=== PATIENT | female | born 1935 | race Caucasian/White ===

== ENCOUNTER 2018-03-22 23:50 | Inpatient (IN) ==
[2018-03-23] MEDS ORDERED: Naloxone 0.4 MG/ML INJ IVP PRN (05:28)
[2018-03-23] MEDS ORDERED: D5% in Water 1,000 ML IVC PRN (05:31)
[2018-03-23] MEDS ORDERED: *HR* Dextrose 50 % in Water (Syg) 50 ML SYRINGE IVP PRN (05:31)
[2018-03-23] MEDS ORDERED: Dextrose Gel 15 GM/37.5 ML TUBE PO PRN ×2 (05:31)
--- NOTE | 2018-03-23 05:33 | Internal Med History&Physical ---
<Alden Carrasquillo R - Last Filed: 03/23/18 06:31> Date of Encounter: 03/23/18 Time of Encounter: 05:33 Internal Medicine - H&P: HPI Chief complaint: Shortness of breath Admitted From: Emergency Dept Plans for Post Hospital Care: Home History of present illness: Ms. Boyce is a 82 year old female with history of COPD oxygen dependent 2 L nasal cannula, CHF, recent hospitalization for pneumonia and COPD exacerbation. She reports shortness of breath beginning yesterday afternoon. This was worse with activity. Complains of associated cough, chest congestion, and wheezing. She denies chest pain, nausea, vomiting, abdominal pain, fever or chills. Evaluation in the emergency department did reveal mild leukocytosis of 13.3, afebrile, heart rate of 111, respiratory rate of 28. Did initially require B iPAP in the ED however this was subsequently removed and patient tolerated oxygen by nasal cannula. CT of the chest was negative for pulmonary embolus, no findings suggestive of consolidation or pneumonia. Patient was given breathing treatments and levofloxacin. She was transferred to [facility] from [place] ED for further evaluation and management. At the time my evaluation patient is resting comfortably in bed. She reports that shortness of breath is present but is improved since initial presentation. She has no complaints at this time. Past Med Surg Social Fam HX - Past Medical History Medical history: asthma, cancer, cardiomyopathy, CHF, COPD, GERD, other Additional medical history: breast cancer, skin cancer lesion of the L lesion of the L [place], Psychiatric history: no psych history - Past Surgical History Surgical History: breast surgery, cholecystectomy, MORELIA/BSO Additional surgical history: double mastectomy with lymph node removal on the right, carpal tunnel on both wrists, - Social History Smoking Status: Former smoker Smokeless Tobacco Status: No Alcohol use: none Drug use: none - Family History Father Living Status: Hx Family Cancer: Yes (Prostate) Mother Living Status: Hx Family Cancer: (colon cancer) Hx Family Neurologic Disorders: Yes (CVA) Sister Hx Family Cancer: Yes (Skin, breast) Brother Hx Family Cardiac Disorders: Yes (bradycardia) Internal Medicine - H&P: Meds ALPRAZolam [Xanax 0.25 MG Tablet] 0.25 mg PO BID 09/14/15 [History] Albuterol Sulfate [Albuterol Inhaler] 1 puff IH Q6HR PRN 09/14/15 [History] Ascorbate Calcium [Vitamin C] 500 mg PO DAILY 09/14/15 [History] Aspirin Enteric Coated [Aspirin EC] 81 mg PO DAILY 09/14/15 [History] Citalopram Hydrobromide [Citalopram HBr] 20 mg PO DAILY 09/14/15 [History] Ergocalciferol (VITAMIN D2) [Vitamin D2 (50,000 UNIT)] 50,000 unit PO DAILY 09/14/15 [History] Ferrous Sulfate 325 mg PO DAILY 09/14/15 [History] Fluticasone/Salmeterol [Advair 250-50 Diskus] 1 each IH BID 09/14/15 [History] Furosemide [Lasix] 20 mg PO DAILY 09/14/15 [History] Metoprolol Tartrate [Lopressor] 50 mg PO BID 09/14/15 [History] Montelukast [Singulair] 10 mg PO DAILY 09/14/15 [History] Esomeprazole Magnesium [Nexium] 20 mg PO DAILY 09/12/16 [History] Oxygen 1 each .ROUTE AD 09/12/16 [History] Anastrozole [Arimidex] 1 mg PO DAILY #30 tablet 09/21/17 [Rx] DULoxetine 30 mg DAILY 03/03/18 [History] Hydrochlorothiazide 25 mg PO DAILY 03/03/18 [History] Ipratropium/Albuterol Neb [Duoneb] 3 ml IH QID 03/03/18 [History] Potassium Chloride [Klor-Con Sprinkle] 20 meq PO BID 03/03/18 [History] Docusate [Colace] 100 mg PO BID capsule 03/05/18 [Rx] Allergy/AdvReac Type Severity Reaction Status Date / Time latex Allergy Hives Verified 03/23/18 04:30 Penicillins [PCN] Allergy Rash Verified 09/12/16 11:22 Sulfa (Sulfonamide Allergy Rash Verified 09/12/16 11:22 Antibiotics) All Systems PM: A 10-system review of systems was performed and is negative for pertinent fin dings except as documented above in the HPI. - Constitutional Constitutional: no chills, no fever(s) - EENT Eyes: no change in vision, no diplopia Nose, mouth and throat: no dysphagia, no neck pain - Cardiovascular Cardiovascular ROS IM: no chest pain, no diaphoresis, no lightheadedness, no palpitations - Respiratory Respiratory: cough, dyspnea, dyspnea on exertion, wheezing, chest congestion - Gastrointestinal Gastrointestinal: constipation, no abdominal pain, no diarrhea, no hematemesis, no hematochezia, no melena, no nausea, no vomiting - Genitourinary Genitourinary: no dysuria, no flank pain - Musculoskeletal Musculoskeletal ROS IM: no muscle weakness, no numbness, no tingling - Integumentary Integumentary IM: no erythema, no rash - Neurological Neurological ROS: no confusion, no dizziness, no focal weakness - Psychiatric Psychiatric: no anxiety, no depression - Hematologic/Lymphatic Hematologic/Lymphatic: no easy bleeding, no easy bruising - Constitutional Vitals: Temp Pulse Resp BP Pulse Ox 98.1 F 105 16 108/65 97 03/23/18 03:56 03/23/18 03:56 03/23/18 03:56 03/23/18 03:56 03/23/18 03:56 Exam: General: Patient seated upright in bed, appears stated age, no apparent distress HEENT: Atraumatic, normocephalic, anicteric sclera, moist mucous membranes, pupils PERRLA with EOMI Neck: Soft, full range of motion, no lymphadenopathy Cardiovascular: Tachycardic with regular rate and rhythm, no murmurs, rubs, or gallops Respiratory: Diffuse expiratory wheezing, prolonged respiratory phase, no crackles present to auscultation Abdomen: Soft, nontender, nondistended, positive bowel sounds, no guarding or rigidity Extremities: 1+ pitting edema bilateral lower extremities, peripheral pulses intact Neuro: Alert and oriented to person, place, and situation. No focal deficits. Psych: Conversant and pleasant, appropriate mood and affect - Assessment and plan (1) Acute exacerbation of chronic obstructive airways disease Current Visit: No Status: Acute Assessment and plan: Oxygen dependent COPD with acute exacerbation CTA chest without evidence of pulmonary embolus, bilateral lower lobe mucous plugs present Plan: Supplemental oxygenation as necessary Antibiotics with Levaquin Solu-Medrol 40 mg every 6 hours Will consider BiPAP as indicated (2) HTN (hypertension) Current Visit: No Status: Chronic Assessment and plan: Controlled at this time, will resume all medications after pharmacy verification Qualifiers: Hypertension type: essential hypertension Qualified Code(s): I10 - Essential (primary) hypertension (3) CHF (congestive heart failure) Current Visit: No Status: Chronic Assessment and plan: Does not appear to be volume overloaded at this time Will resume home medications pending pharmacy verification Qualifiers: Heart failure type: unspecified Heart failure chronicity: chronic Quali fied Code(s): I50.9 - Heart failure, unspecified (4) Hypokalemia Current Visit: No Status: Acute Assessment and plan: Hyperkalemic at admission with potassium of 3.4 We will monitor and replace electrolytes as necessary We will check magnesium level (5) DVT prophylaxis Current Visit: Yes Status: Acute Assessment and plan: Heparin SQ 5000 units every 8 hours - Time Spent With Patient Total time spent is greater than 50% in coordination of care (as documented) at patient's floor/unit and/or counseling patient: <Maria Fernanda Pereira - Last Filed: 03/23/18 07:26> Date of Encounter: 03/23/18 Internal Medicine - H&P: HPI History of present illness: Ms. Boyce is a 82 year old female All Systems PM: A 10-system review of systems was performed and is negative for pertinent findings except as documented above in the HPI. - Constitutional Vitals: Temp Pulse Resp BP Pulse Ox 98.1 F 105 18 108/65 98 03/23/18 03:56 03/23/18 03:56 03/23/18 06:05 03/23/18 03:56 03/23/18 06:05 - Assessment and plan (1) Acute exacerbation of chronic obstructive airways disease Current Visit: No Status: Acute (2) HTN (hypertension) Current Visit: No Status: Chronic Qualifiers: Hypertension type: essential hypertension Qualified Code(s): I10 - Essential (primary) hypertension (3) CHF (congestive heart failure) Current Visit: No Status: Chronic Qualifiers: Heart failure type: unspecified Heart failure chronicity: chronic Qualified Code(s): I50.9 - Heart failure, unspecified (4) Hypokalemia Current Visit: No Status: Acute (5) DVT prophylaxis Current Visit: Yes Status: Acute - Time Spent With Patient Total time spent is greater than 50% in coordination of care (as documented) at patient's floor/unit and/or counseling patient: - Attending Attestation I performed a history and physical examination of the patient and discussed her management with the resident. I have reviewed the resident's note and agree with the assessment and plan of care. Patient is a 82-year-old female with a past medical history of COPD currently on 2 L home oxygen who presents to [facility] initially complaining of shortness of breath. A CTA was performed which showed negative PE. No evidence of pneumonia on imaging. Patient was to be admitted at [place] for COPD exacerbation but they do not have any female beds and therefore patient was subsequently transferred to [place].
[2018-03-23] MEDS ORDERED: Ipratropium/Albuterol Neb 3 ML ONE (05:57)
[2018-03-23] MEDS: Ipratropium/Albuterol Neb 3 ML IH SCH ×4 (06:04→22:34)
[2018-03-23] MEDS: *HR* Heparin 5,000 UNIT/ML VIAL SQ SCH ×3 (06:09→21:53)
[2018-03-23] MEDS ORDERED: methylPREDNISolone 125 MG/2 ML VIAL IVP SCH (08:00)
[2018-03-23] MEDS: Insulin LISPRO 300 UNITS/3 ML VIAL SQ SCH ×4 (08:31→21:21)
[2018-03-23] MEDS: Levofloxacin 750 MG/150 ML 750 MG/150 ML BAG IVPB SCH (08:39)
[2018-03-23 09:34] LABS: Hematocrit 37.7 % (35.3-44.9); Mean Corpuscular HGB Conc 34.5 g/dL (31.6-35.5); Mean Corpuscular Hemoglobin 30.7 pg (28.0-33.3); Mean Corpuscular Volume 88.9 fL (83.0-100.0); Mean Platelet Volume 10.4 fL (9.4-12.4); Platelet Count 210 K/mcL (140-400); Red Blood Count 4.24 M/mcL (3.82-4.97); Red Cell Distribution Width 13.2 % (11.5-14.5)
[2018-03-23 09:53] LABS: BUN/Creatinine Ratio 23 (6-26); Blood Urea Nitrogen 16 mg/dL (8-23); Carbon Dioxide 28 mEq/L (23-29); Chloride 90 mEq/L (98-107); Glucose 197 mg/dL (70-105); Osmolality,Calculated 277 (280-300); Potassium 3.8 mEq/L (3.5-5.1); Sodium 130 mEq/L (136-145); eGFR For Non-African Americans > 60 (> 60)
[2018-03-23 09:54] LABS: Calcium 9.6 mg/dL (8.6-10.3)
--- NOTE | 2018-03-23 10:02 | Internal Med Progress Note ---
<Rell Carolina - Last Filed: 03/23/18 09:59> Date of Encounter: 03/23/18 Time of Encounter: 09:10 - Assessment and plan (1) Acute exacerbation of chronic obstructive pulmonary disease (COPD) Current Visit: No Status: Acute Assessment and plan: On examination today patient still has a moderate amount of wheezing bilaterally on auscultation. However she is at her baseline oxygen rate of 2 L. Oxygen saturation of 97 currently. Patient is afebrile. COPD exacerbation likely triggered by patient's recent infection with pneumonia couple weeks ago. CTA chest without evidence of pulmonary embolus, bilateral lower lobe mucous plugs present - Increase Solu-Medrol from 40 mg 4 times a day to 60 mg 3 times a day. - Continue Levaquin day #1. - BiPAP as needed. - Supplemental oxygen as necessary. (2) HTN (hypertension) Current Visit: No Status: Chronic Assessment and plan: Blood pressure stable at 108/65. - Blood pressure control at this time. Will resume home medications once verified by pharmacy. Qualifiers: Hypertension type: essential hypertension Qualified Code(s): I10 - Essential (primary) hypertension (3) CHF (congestive heart failure) Current Visit: No Status: Chronic Assessment and plan: Does not appear to be volume overloaded at this time - Will resume home medications pending pharmacy verification Qualifiers: Heart failure type: unspecified Heart failure chronicity: chronic Qualified Code(s): I50.9 - Heart failure, unspecified (4) Hypokalemia Current Visit: No Status: Resolved Assessment and plan: Potassium 3.8. Magnesium level is normal. (5) DVT prophylaxis Current Visit: Yes Status: Acute Assessment and plan: Heparin SQ 5000 units every 8 hours - Subjective Interval history: When seen today patient denies any nausea, or vomiting. She says her shortness of breath has improved a little since yesterday. She denies any lightheadedness, dizziness. Denies any abdominal pain. She still admits to some cough with production of yellow sputum. She denies any fever. - Constitutional Vitals: Temp Pulse Resp BP Pulse Ox 97.9 F 106 13 108/65 97 03/23/18 07:43 03/23/18 07:43 03/23/18 07:43 03/23/18 03:56 03/23/18 07:43 General appearance: Present: A&O X 3, no acute distress, answers questions appropriately - Respiratory Respiratory exam: Present: wheezes (Moderate wheezing bilaterally). Absent: accessory muscle use, chest wall tenderness, decreased breath sounds, rhonchi, stridor, tachypnea - Cardiovascular Cardiovascular exam: Present: +S1, +S2, tachycardia (Borderline tachycardia). Absent: +S3, +S4 - GI/Abdominal GI/Abdominal exam: Present: normal bowel sounds, soft, no peritoneal signs. Absent: distended, tenderness - Extremities Exam Extremities exam: Present: warm, radial pulses palpable and symmetrical. Absent: calf tenderness, cyanotic, pedal edema Internal Medicine: Result - Labs CBC & Chem 7: 03/23/18 09:21 03/23/18 09:21 Labs: Short CBC 03/23/18 Range/Units 09:21 WBC 10.9 (4.3-11.1) K/mcL Hgb 13.0 (11.5-15.4) g/dL Hct 37.7 (35.3-44.9) % Plt Count 210 (140-400) K/mcL BMP 03/23/18 09:21 Sodium 130 L Potassium 3.8 Chloride 90 L Carbon Dioxide 28 BUN 16 Creatinine 0.69 Glucose 197 H Calcium 9.6 Consult Discharge Plan - Plan Referrals: Kevyn Zhu MD [Partnered Physician] - 03/29/18 8:00 am Daisy Herrera [Advanced Practice Nurse] - 05/19/18 9:30 am Kurt Avalos, [employer] [Primary Care Provider] - Xu Meeks MD [Partnered Physician] - 04/14/18 1:30 pm <Catherine Allison - Last Filed: 03/23/18 13:23> Date of Encounter: 03/23/18 - Constitutional Vitals: Temp Pulse Resp BP Pulse Ox 98.1 F 124 14 125/62 95 03/23/18 12:23 03/23/18 12:23 03/23/18 12:23 03/23/18 12:23 03/23/18 12:23 Internal Medicine: Result - Labs CBC & Chem 7: 03/23/18 09:21 03/23/18 09:21 Labs: Short CBC 03/23/18 Range/Units 09:21 WBC 10.9 (4.3-11.1) K/mcL Hgb 13.0 (11.5-15.4) g/dL Hct 37.7 (35.3-44.9) % Plt Count 210 (140-400) K/mcL [facility] 03/23/18 09:21 Sodium 130 L Potassium 3.8 Chloride 90 L Carbon Dioxide 28 BUN 16 Creatinine 0.69 Glucose 197 H Calcium 9.6 - Attending Attestation I examined this patient and my medical decision-making was reviewed with the Resident Physician Dr. Carolina . I agree with the documented findings, disposition and treatment plan as described except to the extent set forth below. Ms. Boyce is a 82 year old female with history of COPD oxygen dependent 2 L nasal cannula, Diastolic CHF, recent hospitalization for pneumonia and COPD exacerbation. She reports shortness of breath beginning yesterday afternoon. She still complains of associated cough, chest congestion, and wheezing. CT of the chest was negative for pulmonary embolus, no findings suggestive of consolidation or pneumonia. She is currently on 2 lit O2. Still having moderate SOB and IGLESIAS. Gen: A, A, O x 3 Chest: Diminished BS b/l, moderate to severe wheezing. Ronchi+ No rales Heart: S1S2+ Sinus tachy, No murmurs Ext: No edema a/p 1. Acute COPD exacerbation 2. Acute purulent bronchitis 3. Acute on chronic hypoxic resp failure 4. Sinus tachycardia 5. SIRS cont empirical abx Levaquin Will inc her steroids to 60mg Q6hr Will start her on Mucinex 6. Chronic CHF - mostly diastolic No previous Echo's to assess will order Echo today Held diuretics since her BP running low cont BB Patient does need to stay in the hospital more than 2 midnights due to her c omplex medical problems. So we will change her to full admission today. I did review my colleague Dr. Pereira H & P including HPI, PMH, PSH, FH, SH, and ROS no changes noticed
[2018-03-23] MEDS: Ondansetron 4 MG/2 ML VIAL IVP SCH ×2 (10:43→17:22)
[2018-03-23] MEDS ORDERED: MethylPREDNISolone 40 MG/ML VIAL IVP SCH (12:00)
[2018-03-23] MEDS ORDERED: Anastrozole 1 MG TABLET PO SCH (12:21)
[2018-03-23] MEDS ORDERED: Aspirin Enteric Coated 81 MG Tablet PO SCH (12:30)
[2018-03-23] MEDS: MethylPREDNISolone 40 MG/ML VIAL IVP SCH (17:22)
[2018-03-23] MEDS ORDERED: ALPRAZolam 0.25 MG TABLET PO SCH (21:00)
[2018-03-23] MEDS: ALPRAZolam 0.25 MG TABLET PO SCH (21:53)
[2018-03-24] MEDS: Ondansetron 4 MG/2 ML VIAL IVP SCH ×5 (00:07→23:15)
[2018-03-24] MEDS: MethylPREDNISolone 40 MG/ML VIAL IVP SCH ×3 (00:14→16:27)
[2018-03-24] MEDS: Ipratropium/Albuterol Neb 3 ML IH SCH ×4 (04:29→22:05)
[2018-03-24] MEDS: *HR* Heparin 5,000 UNIT/ML VIAL SQ SCH ×3 (05:25→20:27)
[2018-03-24 07:13] LABS: Hematocrit 37.3 % (35.3-44.9); Hemoglobin 12.5 g/dL (11.5-15.4); Immature Granulocytes % 0.6 % (0-4); Lymphocytes # 0.6 K/mcL (0.6-4.6); Lymphocytes % 6.4 %; Mean Corpuscular HGB Conc 33.5 g/dL (31.6-35.5); Mean Corpuscular Hemoglobin 30.3 pg (28.0-33.3); Mean Corpuscular Volume 90.5 fL (83.0-100.0); Mean Platelet Volume 10.4 fL (9.4-12.4); Monocytes # 0.1 K/mcL (0.0-1.3); Monocytes % 1.4 %; Neutrophils # 8.9 K/mcL (1.6-8.9); Platelet Count 213 K/mcL (140-400); Red Blood Count 4.12 M/mcL (3.82-4.97); Red Cell Distribution Width 13.4 % (11.5-14.5); Segmented Neutrophils % 91.6 %
[2018-03-24 07:35] LABS: BUN/Creatinine Ratio 25 (6-26); Blood Urea Nitrogen 20 mg/dL (8-23); Calcium 9.9 mg/dL (8.6-10.3); Carbon Dioxide 33 mEq/L (23-29); Chloride 93 mEq/L (98-107); Glucose 217 mg/dL (70-105); Osmolality,Calculated 287 (280-300); Potassium 3.6 mEq/L (3.5-5.1); Sodium 134 mEq/L (136-145); eGFR For Non-African Americans > 60 (> 60)
[2018-03-24] MEDS: Anastrozole 1 MG TABLET PO SCH (08:15)
[2018-03-24] MEDS: Aspirin Enteric Coated 81 MG Tablet PO SCH (08:15)
[2018-03-24] MEDS: ALPRAZolam 0.25 MG TABLET PO SCH ×2 (08:15→20:26)
[2018-03-24] MEDS: Levofloxacin 750 MG/150 ML 750 MG/150 ML BAG IVPB SCH (08:16)
[2018-03-24] MEDS: Cholecalciferol (D-3) 1,000 UNIT TABLET PO SCH (08:16)
[2018-03-24] MEDS: Insulin LISPRO 300 UNITS/3 ML VIAL SQ SCH ×4 (08:16→20:27)
[2018-03-24] MEDS ORDERED: Cholecalciferol (D-3) 1,000 UNIT TABLET PO SCH (09:00)
[2018-03-24] MEDS ORDERED: Aspirin Enteric Coated 81 MG Tablet PO SCH (09:00)
[2018-03-24] MEDS ORDERED: Anastrozole 1 MG TABLET PO SCH (09:00)
[2018-03-24] MEDS ORDERED: NON-FORMULARY MEDICATION 1 EACH EACH (Esomeprazole Magnesium [Nexium] 20 MG) PO SCH (09:00)
--- NOTE | 2018-03-24 11:07 | Internal Med Progress Note ---
Hospitalist Progress Note - Encounter Date of Encounter: 03/24/18 Time of Encounter: 11:04 - Subjective Interval History: Ms. Boyce is a 82 year old female with history of COPD oxygen dependent 2 L nasal cannula, Diastolic CHF, recent hospitalization for pneumonia and COPD exacerbation. She reports shortness of breath beginning yesterday afternoon. She still complains of associated cough, chest congestion, and wheezing. CT of the chest was negative for pulmonary embolus, no findings suggestive of consolidation or pneumonia. She is currently on 2 lit O2. Still having moderate SOB and IGLESIAS. She denied any chest pain. She still complaining about cough with expectoration - Exam Vitals: Temp Pulse Resp BP Pulse Ox 98.5 F 106 16 117/64 94 03/24/18 08:02 03/24/18 08:02 03/24/18 08:02 03/24/18 08:02 03/24/18 08:02 Exam: Gen: Alert, awake, Oriented to time,place and person Chest: Diminished BS b/l, moderate wheezing. Ronchi+ No rales Heart: S1S2+ RRR No murmurs Abd: Soft, NT, BS +, No organomegaly Ext: No edema, pulses are palpable, No calf tenderness Neuro : Benign findings Skin: No rash. - Assessment and Plan (1) Acute exacerbation of chronic obstructive airways disease Current Visit: No Status: Acute Assessment and Plan: Slowly improving her wheezing little better today will cut down on her steroids today continue bronchodilator (2) Acute bronchitis Current Visit: Yes Status: Acute Assessment and Plan: Mostly bacterial continue empirical antibiotic levofloxacin (3) Chronic respiratory failure with hypoxia Current Visit: Yes Status: Acute Assessment and Plan: Currently on 2 lit oxygen (4) CHF (congestive heart failure) Current Visit: No Status: Chronic Assessment and Plan: Does not appear to be volume overloaded at this time most likely seems to be chronic diastolic CHF No previous Echo's to assess Echo - P Held diuretics since her BP running low and patient is high risk for sepsis cont BB (5) HTN (hypertension) Current Visit: No Status: Chronic Assessment and Plan: Stable blood pressure now - Time Spent with Patient Total time spent is greater than 50% in coordination of care (as documented) at patient's floor/unit and/or counseling patient: Internal Medicine: Result - Labs CBC & Chem 7: 03/24/18 06:14 03/24/18 06:14 Labs: Short CBC 03/24/18 Range/Units 06:14 WBC 9.7 (4.3-11.1) K/mcL Hgb 12.5 (11.5-15.4) g/dL Hct 37.3 (35.3-44.9) % Plt Count 213 (140-400) K/mcL Neutrophils # 8.9 (1.6-8.9) K/mcL BMP 03/24/18 06:14 Sodium 134 L Potassium 3.6 Chloride 93 L Carbon Dioxide 33 H BUN 20 Creatinine 0.81 Glucose 217 H Calcium 9.9 Consult Discharge Plan - Plan Referrals: Kevyn Zhu MD [Partnered Physician] - 03/29/18 8:00 am Daisy Herrera [Advanced Practice Nurse] - 05/19/18 9:30 am Kurt Avalos CNP [Primary Care Provider] - 03/29/18 3:40 pm Xu Meeks MD [Partnered Physician] - 04/14/18 1:30 pm (4) CHF (congestive heart failure) Qualifiers: Heart failure type: unspecified Heart failure chronicity: chronic Qualified Code(s): I50.9 - Heart failure, unspecified (5) HTN (hypertension) Qualifiers: Hypertension type: essential hypertension Qualified Code(s): I10 - Essential (primary) hypertension
[2018-03-24] MEDS: Sennosides/Docusate Sodium TABLET PO SCH ×2 (11:45→20:26)
[2018-03-25] MEDS: Ipratropium/Albuterol Neb 3 ML IH SCH ×4 (03:58→22:39)
[2018-03-25] MEDS: *HR* Heparin 5,000 UNIT/ML VIAL SQ SCH ×3 (05:53→21:24)
[2018-03-25] MEDS: Ondansetron 4 MG/2 ML VIAL IVP SCH ×2 (05:54→12:17)
[2018-03-25] MEDS: MethylPREDNISolone 40 MG/ML VIAL IVP SCH ×2 (05:54→16:50)
[2018-03-25] MEDS: Aspirin Enteric Coated 81 MG Tablet PO SCH (07:33)
[2018-03-25] MEDS: Anastrozole 1 MG TABLET PO SCH (07:33)
[2018-03-25] MEDS: Insulin LISPRO 300 UNITS/3 ML VIAL SQ SCH ×4 (07:33→21:30)
[2018-03-25] MEDS: ALPRAZolam 0.25 MG TABLET PO SCH ×2 (07:33→21:23)
[2018-03-25] MEDS: Sennosides/Docusate Sodium TABLET PO SCH ×2 (07:33→21:23)
[2018-03-25] MEDS: Levofloxacin 750 MG/150 ML 750 MG/150 ML BAG IVPB SCH (07:34)
[2018-03-25] MEDS: Cholecalciferol (D-3) 1,000 UNIT TABLET PO SCH (07:34)
--- NOTE | 2018-03-25 12:51 | Internal Med Progress Note ---
<MickyfidelRell morales - Last Filed: 03/25/18 12:47> Date of Encounter: 03/25/18 Time of Encounter: 09:30 - Assessment and plan (1) Acute exacerbation of chronic obstructive pulmonary disease (COPD) Current Visit: No Status: Acute Assessment and plan: On examination today patient still has a moderate amount of wheezing bilaterally on auscultation. However she is at her baseline oxygen rate of 2 L. Oxygen saturation of 92 currently. Patient is afebrile. COPD exacerbation likely triggered by patient's recent bronchitis. CTA chest without evidence of pulmonary embolus, bilateral lower lobe mucous plugs present - Continue Solu-Medrol from 40 mg BID daily. - Continue scheduled duonebs. - Continue Levaquin day #3. Will need total 5 day course. - BiPAP as needed. - Supplemental oxygen as necessary. (2) HTN (hypertension) Current Visit: No Status: Chronic Assessment and plan: Blood pressure stable at 113/60. - Blood pressure controlled at this time. - Continue metoprolol. Qualifiers: Hypertension type: essential hypertension Qualified Code(s): I10 - Es sential (primary) hypertension (3) CHF (congestive heart failure) Current Visit: No Status: Chronic Assessment and plan: Does not appear to be volume overloaded at this time. Qualifiers: Heart failure type: unspecified Heart failure chronicity: chronic Qualified Code(s): I50.9 - Heart failure, unspecified (4) DVT prophylaxis Current Visit: Yes Status: Acute Assessment and plan: Heparin SQ 5000 units every 8 hours - Subjective Interval history: When seen today patient denies any nausea, or vomiting. She says her shortness of breath has improved a since yesterday. She denies any lightheadedness, dizziness. Denies any abdominal pain. She still admits to some cough with p roduction of clear sputum. She denies any fever. Still denies having a bowel movement yet since admission. - Constitutional Vitals: Temp Pulse Resp BP Pulse Ox 98.6 F 96 16 113/69 93 03/25/18 11:28 03/25/18 11:28 03/25/18 11:28 03/25/18 11:28 03/25/18 11:28 General appearance: Present: A&O X 3, no acute distress, answers questions appropriately - Respiratory Respiratory exam: Present: wheezes (Moderate wheezing b/l). Absent: accessory muscle use, respiratory distress, rhonchi, tachypnea - Cardiovascular Cardiovascular exam: Present: RRR, +S1, +S2. Absent: diastolic murmur, gallop, rubs, systolic murmur - GI/Abdominal GI/Abdominal exam: Present: normal bowel sounds, soft, no peritoneal signs. Absent: distended, tenderness - Extremities Exam Extremities exam: Present: normal capillary refill, warm, radial pulses palpable and symmetrical. Absent: calf tenderness, cyanotic, pedal edema Internal Medicine: Result - Labs CBC & Chem 7: 03/24/18 06:14 03/24/18 06:14 Consult Discharge Plan - Plan Referrals: Kevyn Zhu MD [Partnered Physician] - 03/29/18 8:00 am Daisy Herrera [Advanced Practice Nurse] - 05/19/18 9:30 am Kurt Avalos CNP [Primary Care Provider] - 03/29/18 3:40 pm Xu Meeks MD [Partnered Physician] - 04/14/18 1:30 pm <Catherine Allison - Last Filed: 03/25/18 13:58> Date of Encounter: 03/25/18 - Assessment and plan (1) Acute exacerbation of chronic obstructive airways disease Current Visit: No Status: Acute (2) Acute bronchitis Current Visit: Yes Status: Acute (3) Chronic respiratory failure with hypoxia Current Visit: Yes Status: Acute (4) CHF (congestive heart failure) Current Visit: No Status: Chronic Qualifiers: Heart failure type: unspecified Heart failure chronicity: chronic Qualified Code(s): I50.9 - Heart failure, unspecified (5) HTN (hypertension) Current Visit: No Status: Chronic Qualifiers: Hypertension type: essential hypertension Qualified Code(s): I10 - Essential (primary) hypertension - Constitutional Vitals: Temp Pulse Resp BP Pulse Ox 98.6 F 96 16 113/69 93 03/25/18 11:28 03/25/18 11:28 03/25/18 11:28 03/25/18 11:28 03/25/18 11:28 Internal Medicine: Result - Labs CBC & Chem 7: 03/24/18 06:14 03/24/18 06:14 - Attending Attestation I examined this patient and my medical decision-making was reviewed with the Resident Physician Dr. Carolina . I agree with the documented findings, disposition and treatment plan as described except to the extent set forth below. Ms. Boyce is a 82 year old female with history of COPD oxygen dependent 2 L nasal cannula, Diastolic CHF, recent hospitalization for pneumonia and COPD exacerbation. She reports shortness of breath beginning yesterday afternoon. She still complains of associated cough, chest congestion, and wheezing. CT of the chest was negative for pulmonary embolus, no findings suggestive of consolidation or pneumonia. She is currently on 2 lit O2. Still having moderate SOB and IGLESIAS. She denied any chest pain. Overall feels little better today Gen: A, A, O x 3 Chest: Diminished BS b/l, moderate to severe wheezing. Ronchi+ No rales Heart: S1S2+ Sinus tachy, No murmurs Ext: No edema a/p 1. Acute COPD exacerbation 2. Acute purulent bronchitis 3. Acute on chronic hypoxic resp failure 4. Sinus tachycardia 5. SIRS Improving cont empirical abx Levaquin start tpaering steroids Cont bronchodilators therapy Con Mucinex 6. Chronic CHF - mostly diastolic reviewed Echo showed - preserved LVEF, indeterminate diastolic function Held diuretics since her BP running low cont BB
[2018-03-25] MEDS ORDERED: Ondansetron 4 MG/2 ML VIAL IVP PRN (15:07)
[2018-03-26] MEDS: Ipratropium/Albuterol Neb 3 ML IH SCH ×2 (04:07→10:41)
[2018-03-26] MEDS: *HR* Heparin 5,000 UNIT/ML VIAL SQ SCH (05:14)
[2018-03-26] MEDS: MethylPREDNISolone 40 MG/ML VIAL IVP SCH (05:14)
[2018-03-26] MEDS: Insulin LISPRO 300 UNITS/3 ML VIAL SQ SCH ×2 (08:35→12:23)
[2018-03-26] MEDS ORDERED: levoFLOXacin 750 MG TABLET PO SCH (09:00)
[2018-03-26] MEDS: ALPRAZolam 0.25 MG TABLET PO SCH (10:12)
[2018-03-26] MEDS: Aspirin Enteric Coated 81 MG Tablet PO SCH (10:13)
[2018-03-26] MEDS: Cholecalciferol (D-3) 1,000 UNIT TABLET PO SCH (10:13)
[2018-03-26] MEDS: Anastrozole 1 MG TABLET PO SCH (10:13)
[2018-03-26] MEDS: Sennosides/Docusate Sodium TABLET PO SCH (10:13)
[2018-03-26 10:42] VITALS: BP 133/75
--- NOTE | 2018-03-26 11:34 | Discharge Summary ---
<Rell Carolina - Last Filed: 03/26/18 11:32> Orders not resulted at time of discharge: Pending orders 03/26/18 10:38 CXR, portable [XR chest 1V portable] [XR] Routine Date of Encounter: 03/26/18 Time of Encounter: 09:20 - Discharge Diagnosis (1) Acute exacerbation of chronic obstructive pulmonary disease (COPD) Priority: Primary Status: Acute (2) HTN (hypertension) Priority: Primary Status: Chronic Qualifiers: Hypertension type: essential hypertension Qualified Code(s): I10 - Essential (primary) hypertension (3) CHF (congestive heart failure) Priority: Primary Status: Chronic Qualifiers: Heart failure type: unspecified Heart failure chronicity: chronic Qualified Code(s): I50.9 - Heart failure, unspecified (4) DVT prophylaxis Priority: Primary Status: Acute Hospital course: Patient is a 82 F with a PMH of COPD oxygen dependent 2 L nasal cannula, CHF, recent hospitalization for pneumonia and COPD exacerbation that presented on 03/23/18 for shortness of breath. She was admitted for COPD exacerbation. CT of the chest was negative for pulmonary embolus, no findings suggestive of consolidation or pneumonia. Patient was given breathing treatments and levofloxacin. She was transferred to [facility] from [place] [facility] for further evaluation and management. She was started on Solu-Medrol 40 mg and Levaquin. BiPAP as needed. Her oxygen is currently at baseline at 93% with 2 L of NC. Her echocardiogram shed an LVEF of 70-75% with only mild tricuspid regurgitation. Patient does not appear volume overloaded and denies any orthopnea. When seen today, patient says that her shortness of breath has significantly improved and is back to her baseline. She denies any nausea, vomiting, headaches, fever, chest pain, abdominal pain, or lower extremity swelling. Patient will be discharged today. Will prescribe her a prednisone tapering regimen. She normally takes 5 mg of prednisone daily, which she can resume after her tapering schedule. I will also give her an additional 2 days of levaquin 750 mg for a total of 5 days. Patient is to continue his home medications for his COPD. Patient will need to follow-up with PCP within one week. Warned her that if she experiences any increase in shortness of breath, chest pain, lower extremity swelling, or fever to report immediately to the ER. - Time Spent with Patient Total time spent providing and/or coordinating discharge services: Less than 30 minutes - Discharge Medications Prescriptions: RX: levoFLOXacin [Levaquin] 750 mg PO DAILY 2 Days #2 tablet predniSONE [PredniSONE] 30 mg PO DAILY #30 tablet Home Medications: RX: ALPRAZolam [Xanax 0.25 MG Tablet] 0.25 mg PO BID 09/14/15 [History] RX: Albuterol Sulfate [Albuterol Inhaler] 1 puff IH Q6HR PRN 09/14/15 [History] RX: Ascorbate Calcium [Vitamin C] 500 mg PO DAILY 09/14/15 [History] RX: Aspirin Enteric Coated [Aspirin EC] 81 mg PO DAILY 09/14/15 [History] RX: Ergocalciferol (VITAMIN D2) [Vitamin D2 (50,000 UNIT)] 50,000 unit PO SA 09/14/15 [History] RX: Fluticasone/Salmeterol [Advair 250-50 Diskus] 1 each IH BID 09/14/15 [History] RX: Furosemide [Lasix] 20 mg PO DAILY 09/14/15 [History] RX: Metoprolol Tartrate [Lopressor] 50 mg PO BID 09/14/15 [History] RX: Montelukast [Singulair] 10 mg PO DAILY 09/14/15 [History] RX: Esomeprazole Magnesium [Nexium] 20 mg PO DAILY 09/12/16 [History] RX: Oxygen 2 l NS HS 09/12/16 [History] RX: Anastrozole [Arimidex] 1 mg PO DAILY #30 tablet 09/21/17 [Rx] RX: DULoxetine [Cymbalta] 30 mg PO DAILY #0 03/03/18 [History] RX: Ipratropium/Albuterol Neb [Duoneb] 3 ml IH QID 03/03/18 [History] RX: hydroCHLOROthiazide [Hydrochlorothiazide] 25 mg PO DAILY #0 03/03/18 [History] RX: Docusate [Colace] 100 mg PO BID capsule 03/05/18 [Rx] RX: Potassium Chloride [K-Tab ER] 20 meq PO BID 03/23/18 [History] RX: levoFLOXacin [Levaquin] 750 mg PO DAILY 2 Days #2 tablet 03/26/18 [Rx] RX: predniSONE [PredniSONE] 5 mg PO DAILY #0 03/26/18 [Rx] predniSONE [PredniSONE] 30 mg PO DAILY #30 tablet 03/26/18 [Rx] Allergies/Adverse Reactions: Allergy/AdvReac Type Severity Reaction Status Date / Time latex Allergy Hives Verified 03/23/18 18:57 Penicillins [PCN] Allergy Rash Verified 03/23/18 18:57 Sulfa (Sulfonamide Allergy Rash Verified 03/23/18 18:57 Antibiotics) Date of admission: 03/24/18 10:54 Primary care physician: Kurt Avalos CNP Consults: 03/23/18 08:54 Consult to Nurse Navigator [CONS] Routine Comment: COPD Discharging clinician: Rell Carolina Anticipated date of discharge: 03/26/18 - Constitutional Vitals: Temp Pulse Resp BP Pulse Ox 98.0 F 110 16 133/75 95 03/26/18 10:36 03/26/18 10:36 03/26/18 10:41 03/26/18 10:36 03/26/18 10:41 General appearance: Present: A&O X 3, no acute distress, answers questions appropriately - Respiratory Respiratory exam: Present: CTAB, wheezes (Improved. Still has minor wheezing b/l). Absent: accessory muscle use, rales, rhonchi, tachypnea - Cardiovascular Cardiovascular exam: Present: RRR, +S1, +S2. Absent: diastolic murmur, gallop, rubs, systolic murmur - GI/Abdominal GI/Abdominal exam: Present: normal bowel sounds, soft, no peritoneal signs. Absent: distended, tenderness - Extremities Exam Extremities exam: Present: normal capillary refill, warm, radial pulses palpable and symmetrical. Absent: calf tenderness, cyanotic, pedal edema, tenderness - Patient Status Disposition: Home, Self-Care Condition: Fair Functional capacity at discharge: independent ambulation Overall status at discharge: patient is progressing back to baseline - Discharge Instructions Follow Up With: Kevyn Zhu MD [Partnered Physician] - 03/29/18 8:00 am Daisy Herrera [Advanced Practice Nurse] - 05/19/18 9:30 am Kurt Avalos CNP [Primary Care Provider] - 03/29/18 3:40 pm Xu Meeks MD [Partnered Physician] - 04/14/18 1:30 pm Additional Instructions: You will be discharged home wiht an oxygen tank from [facility]. When you get home, you will need to contact [facility] to have them deliver portable oxygen tanks to your home. #[phone]. They will brain picker the [place] tank and bring back to the hospital. - Diet and Activity Activity: resume usual activities as tolerated Diet: low salt diet <Catherine Allison - Last Filed: 03/26/18 12:19> Orders not resulted at time of discharge: Pending orders 03/26/18 10:38 CXR, portable [XR chest 1V portable] [XR] Routine Date of Encounter: 03/26/18 - Discharge Diagnosis (1) Acute exacerbation of chronic obstructive airways disease Status: Acute (2) Acute bronchitis Status: Acute (3) Chronic respiratory failure with hypoxia Status: Acute (4) CHF (congestive heart failure) Status: Chronic Qualifiers: Heart failure type: unspecified Heart failure chronicity: chronic Qualified Code(s): I50.9 - Heart failure, unspecified (5) HTN (hypertension) Status: Chronic Qualifiers: Hypertension type: essential hypertension Qualified Code(s): I10 - Ess ential (primary) hypertension Hospital course: Ms. Boyce is a 82 year old female - Time Spent with Patient Total time spent providing and/or coordinating discharge services: Date of admission: 03/24/18 10:54 Primary care physician: Kurt Avlaos CNP Consults: 03/23/18 08:54 Consult to Nurse Navigator [CONS] Routine Comment: COPD - Constitutional Vitals: Temp Pulse Resp BP Pulse Ox 98.0 F 110 16 133/75 95 03/26/18 10:36 03/26/18 10:36 03/26/18 10:41 03/26/18 10:36 03/26/18 10:41 - Attending Attestation I examined this patient and my medical decision-making was reviewed with the Resident Physician Dr. Carolina . I agree with the documented findings, disposition and treatment plan as described except to the extent set forth below. Ms. Boyce is a 82 year old female with history of COPD oxygen dependent 2 L nasal cannula, Diastolic CHF, recent hospitalization for pneumonia and COPD exacerbation. She reports shortness of breath beginning yesterday afternoon. She still complains of associated cough, chest congestion, and wheezing. CT of the chest was negative for pulmonary embolus, no findings suggestive of consolidation or pneumonia. She is currently on 2 lit O2. Pt states she is feeling lot better today. Gen: A, A, O x 3 Chest: Diminished BS b/l, moderate to severe wheezing. Ronchi+ No rales Heart: S1S2+ Sinus tachy, No murmurs Ext: No edema a/p 1. Acute COPD exacerbation 2. Acute purulent bronchitis 3. Acute on chronic hypoxic resp failure 4. Sinus tachycardia 5. SIRS Improved Switched to PO steroids and PO abx Levaquin Cont bronchodilators therapy Con Mucinex 6. Chronic CHF - mostly diastolic reviewed Echo showed - preserved LVEF, indeterminate diastolic function Resumed home lasix and BB Medically stable to d/c home today
== END 2018-03-26 15:22 | disposition home or self-care (01) | DRG 190 ==
LOC: 3BNU → SUATTDRO 03-23 03:54
PROVIDERS: ADMIT Internal Medicine; ATTEND Family Medicine